=== PATIENT | male | born 1970 | race African-American/Black ===

== ENCOUNTER 2019-05-16 11:30 | Inpatient (IN) | payer BC ==
[2019-05-12 11:42] VITALS: BMI 30.4
[2019-05-18] MEDS ORDERED: oxyCODONE HCL 10 MG SUSTAINED ACTING TABLET PO ONE (20:15)
[2019-05-18] MEDS ORDERED: BUPIVICAINE 0.25%/MORPH PF/KETOROLAC - 51ML DISP.SYRINGE IA ONE (20:15)
[2019-05-18] MEDS ORDERED: TRANEXAMIC ACID 1000 MG/10 ML VIAL IVPUSH ONE (20:15)
[2019-05-18] MEDS ORDERED: CEFAZOLIN 2 GM/D5W 2 GM/50 ML ML IVPB ONE (20:15)
[2019-05-18] MEDS ORDERED: CELECOXIB 200 MG CAPSULE PO ONE (20:15)
[2019-05-18] MEDS ORDERED: PANTOPRAZOLE 40 MG TABLET PO ONE (20:17)
--- NOTE | 2019-05-19 08:01 | HP ---
Admitting History and Physical - Admission Chief Complaint: Right hip osteoarthritis x years History of Present Illness: 48 year old male presents regarding his right hip. Longstanding history of right hip osteoarthritis. Patient complains of pain, limited ROM, difficulty ambulating and difficulty completing activities of daily living. Patient has failed conservative treatment measures including PO medications, activity modification, injections and an exercise program. Radiographs confirmed diagnosis of severe osteoarthritis. As patient has failed conservative measures , patient would like to proceed with surgical intervention - right total hip arthroplasty (MAKOplasty). History Source: Patient - Past Medical History Musculoskeletal: Yes: Osteoarthritis - Past Surgical History Additional Past Surgical History: See written history & physical. - Smoking History Smoking history: Former smoker Have you smoked in the past 12 months: Yes Aproximately how many cigarettes per day: 5 If you are a former smoker, when did you quit?: 05/03/19 - Alcohol/Substance Use Hx Alcohol Use: Yes (OCCAS) Home Medications - Allergies Allergies/Adverse Reactions: Allergies Allergy/AdvReac Type Severity Reaction Status Date / Time pork derived (porcine) Allergy Unknown Verified 05/12/19 11:35 No Known Drug Allergies Allergy Verified 05/12/19 11:35 - Home Medications Home Medications: Ambulatory Orders Oxycodone HCl/Acetaminophen [Oxycodone-Acetaminophen 10-325] 2 each PO BID 05/12 oxyCODONE SR [Oxycontin] 20 mg PO BID 05/12/19 Review of Systems - Review of Systems Musculoskeletal: reports: Decreased ROM (right hip), Joint Pain (right hip) Physical Examination Constitutional: Yes: Well Nourished, No Distress Eyes: Yes: Conjunctiva Clear HENT: Yes: Atraumatic Neck: Yes: Supple Cardiovascular: Yes: Regular Rate and Rhythm Respiratory: Yes: Regular Gastrointestinal: Yes: Soft ...Rectal Exam: Yes: Deferred Musculoskeletal: Yes: Joint Stiffness (right hip), Other (Limited ROM right hip) Assessment/Plan 48 year old male presents regarding his right hip. Longstanding history of right hip osteoarthritis. Patient complains of pain, limited ROM, difficulty ambulating and difficulty completing activities of daily living. Patient has failed conservative treatment measures including PO medications, activity modification, injections and an exercise program. Radiographs confirmed diagnosis of severe osteoarthritis. As patient has failed conservative measures , patient would like to proceed with surgical intervention - right total hip arthroplasty (MAKOplasty). Pros, cons, risks, benefits and alternatives of a right total hip arthroplasty (MAKOplasty) were discussed with the patient at length. Patient confirms his understanding and consents to proceed with a right total hip arthroplasty (MAKOplasty).
[2019-05-19] MEDS ORDERED: TRANEXAMIC ACID 1000 MG/10 ML VIAL ONE (10:39)
[2019-05-19] MEDS ORDERED: VANCOMYCIN 1,000 MG VIAL (RESTRICTED TO ID ONLY) ONE (10:40)
[2019-05-19] MEDS ORDERED: ceFAZolin SODIUM 1 GM VIAL ONE (10:40)
[2019-05-19] MEDS ORDERED: PANTOPRAZOLE 40 MG TABLET ONE (10:42)
[2019-05-19] MEDS ORDERED: oxyCODONE HCL 10 MG SUSTAINED ACTING TABLET ONE (10:43)
[2019-05-19] MEDS ORDERED: CELECOXIB 200 MG CAPSULE ONE (10:43)
[2019-05-19] MEDS ORDERED: ONDANSETRON 4 MG/2 ML VIAL IVPUSH PRN ×2 (10:49→15:12)
[2019-05-19] MEDS ORDERED: MIDAZOLAM HCL 2 MG/2 ML SINGLE DOSE VIAL ONE ×4 (10:49→12:01)
[2019-05-19] MEDS ORDERED: DEXAMETHASONE SOD PHOSPHATE/PF 10 MG/ML SDV ONE (10:49)
[2019-05-19] MEDS ORDERED: oxyCODONE HCL 5 MG TABLET PO PRN ×5 (10:50→14:49)
[2019-05-19] MEDS ORDERED: BUPIVACAINE HCL/PF 0.5% (5 MG/ML) 30 ML VIAL IJ ONE (10:50)
[2019-05-19] MEDS ORDERED: LIDOCAINE 1% P/F 10 MG/ML VIAL ONE (10:59)
[2019-05-19] MEDS ORDERED: LACTATED RINGERS SOLUTION 1,000 ML IV SCH ×2 (11:00→15:15)
[2019-05-19] MEDS ORDERED: EPHEDRINE SULFATE/0.9% NACL/PF 50 MG/10 ML SYRINGE NR ONE (12:22)
[2019-05-19] MEDS ORDERED: BUPIVICAINE 0.25%/MORPH PF/KETOROLAC - 51ML DISP.SYRINGE IA ONE (13:53)
[2019-05-19] MEDS ORDERED: KETOROLAC TROMETHAMINE 30 MG/1 ML VIAL ONE (14:34)
[2019-05-19] MEDS ORDERED: ACETAMINOPHEN INJECTION 100 ML IVPB ONE (14:35)
[2019-05-19] MEDS ORDERED: traMADol HCL 50 MG TABLET ONE (14:35)
[2019-05-19] MEDS: KETOROLAC TROMETHAMINE 30 MG/1 ML VIAL IVPUSH SCH ×2 (14:40→20:49)
[2019-05-19] MEDS: traMADol HCL 50 MG TABLET PO SCH ×2 (15:10→20:49)
--- NOTE | 2019-05-19 15:11 | OP ---
Operative Note - Note: Operative Date: 05/19/19 Pre-Operative Diagnosis: right hip OA Operation: right ZIYAD VARGHESE Post-Operative Diagnosis: Same as Pre-op Surgeon: Faustino Reza Shirt Presser: Leatha Claire Anesthesia: Spinal Estimated Blood Loss (mls): 200
[2019-05-19] MEDS ORDERED: MAGNESIUM HYDROX 2400MG/30ML ORAL SUSPENSION 30 ML CUP PO PRN (15:12)
[2019-05-19] MEDS ORDERED: MAG HYDROX/AL HYDROX/SIMETH 30 ML UNIT-DOSE CUP PO PRN (15:12)
[2019-05-19] MEDS ORDERED: ACETAMINOPHEN 1000 MG/100 ML VIAL (NON FORMULARY) IVPB ONE (15:20)
--- NOTE | 2019-05-19 17:11 | SPEC ---
DATE OF OPERATION: 05/19/2019 PREOPERATIVE DIAGNOSIS: Right hip osteoarthritis. POSTOPERATIVE DIAGNOSIS: Right hip osteoarthritis. PROCEDURE PERFORMED: Right total hip replacement with MAKOplasty robotic navigation. SURGEON: Yosef Mead M.D. SOLO MUSICIAN: SHAKIR Finley ANESTHESIA: Spinal plus sedation. ESTIMATED BLOOD LOSS: 200 mL. COMPLICATIONS: None. DISPOSITION: The patient was transferred to the PACU in stable condition. IMPLANTS USED: [place] Accolade II size 4 femoral component, [place] Trident II 56-mm acetabular component with 25-mm acetabular screws, MDM bipolar head ball and liner with inner ceramic plus 4 mm offset head ball. INDICATIONS: This is a 48-year-old male who presented to the office complaining of right hip pain. He was seen and examined by Dr. Mead and diagnosed with severe right hip osteoarthritis. The patient had previously had a left total hip replacement elsewhere and was recovering from that, so he was initially treated nonoperatively with conservative management. He continued to have severe pain and ambulatory dysfunction. He was therefore indicated for a right total hip replacement. The risks, benefits and alternatives to the procedure were explained to the patient in great detail, and he elected to proceed with the surgery. DESCRIPTION OF PROCEDURE: On the day of surgery, the patient was taken to the operating room and placed on the OR table. Spinal anesthesia was administered by the anesthesiologist. The patient was then positioned in the lateral decubitus position on the table and all bony prominences were padded. An axillary roll was placed. The operative hip was then prepped and draped in the usual sterile fashion and intravenous antibiotics were given for infection prophylaxis. A surgical time-out was then performed with the team, and the patients identity, procedure, side, availability of implants, and the administration of antibiotics were confirmed. An approximately 15-cm longitudinal incision was made through the skin centered on the greater trochanter of the hip. This dissection was carried down through the subcutaneous tissues to the deep fascia. This fascia was then incised and a Cobra was placed around the inferior femoral neck. Electrocautery was used to reflect the anterior 40% of the gluteus medius and minimus starting at the musculotendinous junction and leaving a cuff for closure. This was reflected to reveal the capsule of the hip joint. An anterior capsulectomy was performed and the femoral head and neck were visualized. Grade 4 changes were noted diffusely throughout the joint. At this point, three small stab incisions were made superior to the main incision along the iliac crest. Three self-drilling Steinmann pins were then placed and the [employer] Digital pelvic array was attached. Reference points on the limb were then entered into the robotic device and the limb length deficiency, offset, and femoral neck resection level were then calculated by the software. The hip was then dislocated with traction and external rotation. An oscillating saw was used to make the femoral neck cut at the level previously templated, and the femoral head was removed. Attention was then turned to the acetabulum. Retractors were then placed around the acetabulum and the labrum was removed. An acetabular checkpoint pin and the [employer] software were used to register the contours of the acetabulum. The acetabulum was then reamed in a single stage to the preoperatively templated size using the [employer] Digital robotic arm. The appropriately sized cup was then impacted and had solid fixation as well as the preset inclination and version of 40 and 20 degrees, respectively. A polyethylene liner was then placed in the cup. Attention was then turned back to the femur, which was externally rotated for improved visualization. A femoral neck elevator was used to present the femoral neck cut, a box osteotome was used to enter the femoral canal, and a canal finder was used to go down the femoral shaft. The Santos broaches were used sequentially until the optimal scratch fit was achieved. This correlated with the preoperatively templated size. From here, several different offset head and neck configurations were tested until excellent stability and length were obtained. These measurements were quantified using the [employer] software. All trial components were then removed, the femur was copiously irrigated, and the final components were placed. Leg length and stability were checked again and found to be excellent. Irrigation was performed again. Wound closure was started by repairing the abductor muscles with a no. 2 FiberWire stitch in a Krackow configuration passed through bone tunnels in the greater trochanter and tied over a bony bridge. This repair was then reinforced with a 0 V-Loc 180 barbed suture. Next, no. 1 Polysorb and 0 V-Loc 180 were used to close the fascia. The deep subcutaneous tissue was closed with no. 1 Polysorb sutures, and 2-0 Polysorb was used for the superficial subcutaneous tissue. The skin was closed using both 3-0 V-Loc 90 suture in a running subcuticular fashion and SwiftSet skin adhesive. The Santos array and pins were removed from the iliac crest and the stab incision sites were irrigated and closed with 4-0 Polysorb sutures and SwiftSet skin adhesive. Once this was completed, a sterile dressing was applied. The patient was then awakened and taken to the PACU in stable condition. YOSEF MEAD M.D. [id number]
[2019-05-19] MEDS: ACETAMINOPHEN 325 MG TABLET (FP) PO SCH ×3 (17:21→23:10)
[2019-05-19] MEDS ORDERED: CEFAZOLIN 2 GM/D5W 2 GM/50 ML ML IVPB SCH ×2 (17:30→18:00)
[2019-05-19] MEDS: CEFAZOLIN 2 GM/D5W 2 GM/50 ML ML IVPB SCH (19:42)
[2019-05-19] MEDS ORDERED: DEXAMETHASONE SOD PHOSPHATE 10 MG/1 ML VIAL IVPB ONE (20:00)
[2019-05-19] MEDS: oxyCODONE HCL 10 MG SUSTAINED ACTING TABLET PO SCH (21:24)
[2019-05-19] MEDS: ASCORBIC ACID 500 MG TABLET (FP) PO SCH (21:25)
[2019-05-19] MEDS: GABAPENTIN 300 MG CAPSULE PO SCH (21:25)
[2019-05-19] MEDS: CELECOXIB 200 MG CAPSULE PO SCH (21:25)
[2019-05-19] MEDS: SENNOSIDES/DOCUSATE COMBO (SENNA PLUS) TABLET (UD) PO SCH (21:25)
[2019-05-19] MEDS ORDERED: oxyCODONE HCL 10 MG SUSTAINED ACTING TABLET PO SCH (22:00)
[2019-05-20] MEDS: traMADol HCL 50 MG TABLET PO SCH ×4 (03:16→21:35)
[2019-05-20] MEDS: KETOROLAC TROMETHAMINE 30 MG/1 ML VIAL IVPUSH SCH ×4 (03:16→21:34)
[2019-05-20] MEDS: CEFAZOLIN 2 GM/D5W 2 GM/50 ML ML IVPB SCH (03:16)
[2019-05-20] MEDS: ACETAMINOPHEN 325 MG TABLET (FP) PO SCH ×4 (05:39→23:18)
[2019-05-20 07:41] LABS: HEMATOCRIT 41.5 % (35.4-49); HEMOGLOBIN 13.9 GM/dl (11.7-16.9); MCH 32.6 pg (25.7-33.7); MCHC 33.5 g/dl (32.0-35.9); MEAN CELL VOLUME 97.4 fl (80-96); MEAN PLT VOLUME 8.1 fl (7.5-11.1); PLATELET COUNT 237 K/MM3 (134-434); RBC 4.26 M/mm3 (4.00-5.60)
[2019-05-20 07:43] LABS: CALCIUM 8.9 mg/dl (8.5-10); CREATININE 0.9 mg/dl (0.55-1.3); POTASSIUM 4.6 mmol/L (3.5-5.1)
[2019-05-20] MEDS: ASPIRIN 325 MG TABLET PO SCH (07:56)
[2019-05-20] MEDS: CELECOXIB 200 MG CAPSULE PO SCH ×2 (09:34→21:37)
[2019-05-20] MEDS: ASCORBIC ACID 500 MG TABLET (FP) PO SCH ×2 (09:34→21:38)
[2019-05-20] MEDS: oxyCODONE HCL 10 MG SUSTAINED ACTING TABLET PO SCH ×2 (09:34→21:37)
[2019-05-20] MEDS: SENNOSIDES/DOCUSATE COMBO (SENNA PLUS) TABLET (UD) PO SCH ×2 (09:34→21:38)
[2019-05-20] MEDS: PANTOPRAZOLE 40 MG TABLET PO SCH (09:35)
[2019-05-20] MEDS: GABAPENTIN 300 MG CAPSULE PO SCH ×2 (09:35→21:37)
[2019-05-20] MEDS: MULTIVITAMINS (DAILY MVI) TABLET (FP) PO SCH (09:35)
--- NOTE | 2019-05-20 10:10 | PN ---
Progress Note (short form) - Note Progress Note: POD #1 s/p Right THR under spinal with paravertebral block. Patient ambulating. C/o incisional pain. Encouraged patient to use higher dose oxycodone prn. All questions answered.
--- NOTE | 2019-05-20 19:02 | PN ---
Progress Note (short form) - Note Progress Note: Pt seen and examined. Doing well AVSS Selected Entries 05/20/19 14:11 Temperature 97.6 F Pulse Rate 69 Respiratory 18 Rate Blood Pressure 140/67 O2 Sat by Pulse 99 Oximetry (%) Oxygen Delivery Room Air Method Laboratory Tests 05/20/19 05/20/19 07:02 07:02 WBC 14.0 H Hgb 13.9 Hct 41.5 Plt Count 237 Sodium 135 L Potassium 4.6 Chloride 106 Carbon Dioxide 24 Anion Gap 5 L BUN 11.0 Creatinine 0.9 Est GFR (CKD-EPI)AfAm 116.65 Est GFR (CKD-EPI)NonAf 100.64 Calcium 8.9 Gen: NAD RLE: c/d/i, NVID A/P POD#1 s/p R VARGHESE PT/OOB - WBAT RLE D/C home in AM
--- NOTE | 2019-05-20 19:16 | DS ---
Physical Examination Vital Signs: Vital Signs Temperature 97.6 F 05/20/19 14:11 Pulse Rate 69 05/20/19 14:11 Respiratory Rate 18 05/20/19 14:11 Blood Pressure 140/67 05/20/19 14:11 O2 Sat by Pulse Oximetry (%) 99 05/20/19 14:11 Labs: CBC, BMP 05/20/19 07:02 05/20/19 07:02 Discharge Summary Problems reviewed: Yes Reason For Visit: RIGHT HIP OSTEOARTHRITIS Current Active Problems Osteoarthritis of right hip (Acute) Procedures: Principal: right ZIYAD VARGHESE Hospital Course: Admitted for elective surgery. Procedure performed without complications. Pt received postoperative antibiotic prophylaxis and DVT ppx. Ambulated with physical therapy. Stable for discharge home with outpatient followup. Condition: Stable - Instructions Diet, Activity, Other Instructions: Dr Reza - Hip Replacement Instructions Keep the Aquacel dressing on until removed by Dr. Reza in the office - it is antibacterial and waterproof and you can shower with it on. Call the office for a follow-up appointment with Dr. Reza in 2 weeks. Take one Aspirin 325mg daily for 6 weeks to prevent blood clots in your legs. Take one Pantoprazole 40mg daily for 6 weeks to protect against heartburn and ulcers. Take Cephalexin (antibiotic) 3x/day for 10 days to help prevent skin infection. Take Diclofenac 75mg twice daily for 30 days to reduce swelling and inflammation. Take a multivitamin, stool softener and extra Vitamin C supplement daily. For pain: Take 1 Percocet (10/325) tablet every 6 hours as needed. RESUME TAKING OXYCONTIN PRESCRIBED BY PAIN MANAGEMENT. CONTACT PAIN MANAGEMENT TO GET A REFILL BEFORE YOU RUN OUT OF THAT MEDICATION. Activity: You can put as much weight on the operative leg as you want. For the first 6 weeks, all you need to do is walk around the house, go up/down stairs, and sit down/get up. After 6 weeks when everything is healed (and bone has grown into the implant) you will be sent for more intensive outpatient physical therapy. Always use a walker or cane for balance and to prevent falls. Expect to see swelling / bruising from the operative site all the way down to your toes. Wear the Compression stocking on the operative side during the day to minimize how much swelling there is in your foot/ankle. Don't wear the stocking at night. You don't have to wear the stocking on the other side. Disposition: [facility]/HOME HEALTH CARE - Home Medications Comprehensive Discharge Medication List: Ambulatory Orders oxyCODONE SR [Oxycontin] 20 mg PO BID 05/12/19 Ascorbic Acid [Vitamin C -] 500 mg PO BID tablet 05/20/19 Aspirin [ASA -] 325 mg PO DAILY@0800 tablet 05/20/19 Cephalexin Monohydrate [Keflex -] 500 mg PO TID #30 capsule 05/20/19 Diclofenac Sodium 75 mg PO BID #60 tablet. 05/20/19 Multivitamins [Multivit ([facility] Formulary)] 1 tab PO DAILY tab 05/20/19 Oxycodone HCl/Acetaminophen [Oxycodone-Acetaminophen 10-325] 1 tab PO Q6H PRN # 90 tablet MDD 4 05/20/19 Pantoprazole Sodium [Protonix -] 40 mg PO DAILY #40 tablet.ec 05/20/19 Sennosides/Docusate Sodium [Pericolace -] 2 tablet PO BID tablet 05/20/19
[2019-05-21] MEDS: KETOROLAC TROMETHAMINE 30 MG/1 ML VIAL IVPUSH SCH ×2 (03:05→09:30)
[2019-05-21] MEDS: traMADol HCL 50 MG TABLET PO SCH ×2 (03:06→09:30)
[2019-05-21] MEDS: ACETAMINOPHEN 325 MG TABLET (FP) PO SCH ×2 (05:34→11:00)
[2019-05-21 07:14] VITALS: BP 130/72; PULSE 66; TEMP 98.1
[2019-05-21] MEDS: ASPIRIN 325 MG TABLET PO SCH (08:41)
[2019-05-21] MEDS: SENNOSIDES/DOCUSATE COMBO (SENNA PLUS) TABLET (UD) PO SCH (10:00)
[2019-05-21] MEDS: MULTIVITAMINS (DAILY MVI) TABLET (FP) PO SCH (10:05)
[2019-05-21] MEDS: CELECOXIB 200 MG CAPSULE PO SCH (10:05)
[2019-05-21] MEDS: ASCORBIC ACID 500 MG TABLET (FP) PO SCH (10:05)
[2019-05-21] MEDS: PANTOPRAZOLE 40 MG TABLET PO SCH (10:05)
[2019-05-21] MEDS: GABAPENTIN 300 MG CAPSULE PO SCH (10:10)
[2019-05-21] MEDS: oxyCODONE HCL 10 MG SUSTAINED ACTING TABLET PO SCH (10:10)
--- NOTE | 2019-05-24 10:43 | PATH ---
Surgical Pathology Report Patient Name: STACEY CRAWFORD Med. Rec. #: [id number] /Age/Gender: 1970 (Age: 48) / M Account: [id number] Location: [facility] Taken: 05/19/2019 Received: 05/19/2019 Reported: 05/24/2019 Physicians: Faustino Reza M.D. Specimen(s) Received RIGHT FEMORAL HEAD Clinical History Right hip osteoarthritis Final Diagnosis FEMORAL HEAD, RIGHT, TOTAL HIP REPLACEMENT: DEGENERATIVE JOINT DISEASE. Electronically Signed Sabrina Palomares M.D. Gross Description Received in formalin, labeled "right femoral head," is a 4.8 x 4.8 x 4.4 cm. femoral head with 1.2 cm in length portion of femoral neck attached. The margin of resection is smooth. There is a 2.7 cm greatest dimension area of eburnation present. The remaining articular surface is malloy-yellow and diffusely nodular and granular. The underlying trabecular bone is yellow and hard. A new accounts banking representative section is submitted in one cassette, following decalcification. 05/20/[address] [facility]05/20/2019
== END 2019-05-21 11:40 | disposition home health service (06) | DRG 470 ==
LOC: FM/S 05-19 10:16
PROVIDERS: ADMIT Student in an Organized Health Care Education/Training Program; ATTEND Student in an Organized Health Care Education/Training Program
PROC: 8E0Y0CZ Robotic Assisted Procedure of Lower Extremity, Open Approach (ICD-10-PCS; 2019-05-19)
PROC: 0SR90JZ Replacement of Right Hip Joint with Synthetic Substitute, Open Approach (ICD-10-PCS; principal; 2019-05-19 12:29)
DX: M16.11 Unilateral primary osteoarthritis, right hip (principal); Z87.891 Personal history of nicotine dependence
CPT/HCPCS: 36415; 73502-TC-RT-FY; 80048; 85027; 88305-TC; 88311-TC; 94760; 97116-GP; 97163-GP; J0131; J1100